=== PATIENT | male | born 1955 | race Hispanic/Latino ===

== ENCOUNTER → 2024-08-16 | Outpatient (REF) | payer MEDICARE ==
[~2024-08-16] MED LIST: IOPAMIDOL 370 MG/ML 100 ML INFUS..BTL INJ ONE; SODIUM CHLORIDE 0.9% 250ML 250 ML ONE
[2024-08-16 14:33] LABS: CREATININE, SERUM 0.94 mg/dL (0.72-1.25)
== END ==
LOC: CT 13:47
PROVIDERS: ATTEND Urology
DX: R31.21 Asymptomatic microscopic hematuria (principal)
CPT/HCPCS: 36415; 74178; 82565; 84520; J7050; Q9967

== ENCOUNTER 2024-12-07 07:49 | Inpatient (IN) | payer MEDICARE ==
[2024-11-29 10:50] LABS: BASOPHILS % 0.4 % (0.0-1.0); EOSINOPHILS % 1.2 % (0.0-6.0); LYMPHOCYTES % 20.3 % (18.0-39.1); MONOCYTES % 7.7 % (4.4-11.3); NEUTROPHILS % 70.0 % (38.7-80.0); RED CELL DISTRIBUTION WIDTH 14.3 % (11.7-14.4)
[2024-11-29 11:13] LABS: EST GLOMERULAR FILTRATION RATE 100.0 ML/MIN (>=60)
[~2024-12-07] VITALS: Ht 165.1 cm; Wt 68.9 kg
[2024-12-07] VITALS (8 sets, daily range): BP systolic 123–128; BP diastolic 77–81; PULSE 62–70; RESP 18; TEMP 97.5–97.8; O2SAT 94–100
[~2024-12-07 07:49] MED LIST changes: +FINASTERIDE5 MG PO; +FLOMAX0.4 MG PO; -IOPAMIDOL 370 MG/ML 100 ML INFUS..BTL INJ ONE; +LOSARTAN POTASS25 MG PO; -SODIUM CHLORIDE 0.9% 250ML 250 ML ONE
[2024-12-07] MEDS ORDERED: LIDOCAINE HCL 2% LOCAL INJ 5 ML SDV VIAL INJ ONE ×2 (08:42→09:39)
[2024-12-07] MEDS ORDERED: PROPOFOL IV EMULSION 10 MG/ML 20 ML VIAL ONE ×2 (08:42→09:39)
[2024-12-07] MEDS ORDERED: ROCURONIUM BROMIDE 0 ML IV ONE (08:42)
[2024-12-07] MEDS ORDERED: FENTANYL CITRATE/PF 100MCG/2 ML INJ ONE ×2 (09:14→09:39)
[2024-12-07] MEDS ORDERED: MIDAZOLAM HCL 2 MG/2 ML VIAL ONE (09:39)
[2024-12-07] MEDS ORDERED: ONDANSETRON HCL INJ 2MG/ML 2ML 2 MG/ML VIAL ONE (09:40)
[2024-12-07] MEDS ORDERED: ROCURONIUM BROMIDE 1 ML IV ONE (09:44)
[2024-12-07] MEDS: SODIUM CHLORIDE 0.9% 1000ML 1,000 ML ONE (10:24)
[2024-12-07] MEDS: CEFTRIAXONE 1 GM VIAL ONE (10:24)
[2024-12-07] MEDS: GENTAMICIN 80MG/NS 100 ML 200 ML IV ONE (10:25)
[2024-12-07] MEDS ORDERED: EPHEDRINE SULFATE INJ 50 MG/ML VIAL ONE (11:46)
[2024-12-07] MEDS ORDERED: ACETAMINOPHEN 1000 MG/100 ML 100 ML IV ONE (11:47)
[2024-12-07] MEDS ORDERED: SEVOFLURANE INHAL SOLN 250 ML PEN BTL ONE (11:47)
[2024-12-07] MEDS ORDERED: SUGAMMADEX SODIUM 200 MG/2 ML VIAL IV ONE (11:51)
[2024-12-07] MEDS ORDERED: ACETAMINOPHEN 1000 MG/100 ML IV PRN (12:00)
[2024-12-07] MEDS ORDERED: DIPHENHYDRAMINE HCL 25 MG CAP PO PRN (12:00)
[2024-12-07] MEDS ORDERED: ONDANSETRON HCL INJ 2MG/ML 2ML 2 MG/ML VIAL IV PRN (12:00)
[2024-12-07] MEDS: FENTANYL CITRATE/PF 100MCG/2 ML INJ ONE (12:14)
[2024-12-07] MEDS: PHENAZOPYRIDINE HCL 100 MG TAB PO PRN (12:31)
[2024-12-07] MEDS: ACETAMINOPHEN/CODEINE 300MG - 30MG TAB PO PRN (12:31)
[2024-12-07 12:50] LABS: BASOPHILS % 0.3 % (0.0-1.0); EOSINOPHILS % 0.4 % (0.0-6.0); LYMPHOCYTES % 22.5 % (18.0-39.1); MONOCYTES % 5.0 % (4.4-11.3); NEUTROPHILS % 71.5 % (38.7-80.0); RED CELL DISTRIBUTION WIDTH 14.1 % (11.7-14.4)
[2024-12-07 13:25] LABS: EST GLOMERULAR FILTRATION RATE 96.0 ML/MIN (>=60)
[2024-12-07] MEDS: SENNA-S TABLET PO SCH (16:55)
[2024-12-07] MEDS: SODIUM CHLORIDE 0.9% 1000ML 1,000 ML IV SCH (16:56)
[2024-12-08] VITALS (8 sets, daily range): BP systolic 114–126; BP diastolic 71–79; PULSE 64–76; RESP 17–18; TEMP 97.7–98.2; O2SAT 6–100
[2024-12-08 08:15] LABS: BASOPHILS % 0.1 % (0.0-1.0); EOSINOPHILS % 0.1 % (0.0-6.0); LYMPHOCYTES % 9.1 % (18.0-39.1); MONOCYTES % 4.9 % (4.4-11.3); NEUTROPHILS % 85.3 % (38.7-80.0); RED CELL DISTRIBUTION WIDTH 14.3 % (11.7-14.4)
[2024-12-08 08:24] LABS: EST GLOMERULAR FILTRATION RATE 103.0 ML/MIN (>=60)
[2024-12-09] VITALS (7 sets, daily range): BP systolic 115–130; BP diastolic 68–83; PULSE 58–75; RESP 18–20; TEMP 97.9–98.8; O2SAT 96–98
[2024-12-09 07:58] LABS: BASOPHILS % 0.3 % (0.0-1.0); EOSINOPHILS % 1.0 % (0.0-6.0); LYMPHOCYTES % 22.8 % (18.0-39.1); MONOCYTES % 7.5 % (4.4-11.3); NEUTROPHILS % 67.9 % (38.7-80.0); RED CELL DISTRIBUTION WIDTH 14.4 % (11.7-14.4)
[2024-12-09] MEDS ORDERED: TEMAZEPAM 15 MG CAP PO PRN (08:15)
[2024-12-09] MEDS ORDERED: ACETAMINOPHEN 325 MG TAB PO PRN (08:15)
[2024-12-09 08:24] LABS: EST GLOMERULAR FILTRATION RATE 102.0 ML/MIN (>=60)
[2024-12-09] MEDS: TAMSULOSIN HCL 0.4 MG CAP PO SCH (08:53)
== END 2024-12-09 19:00 | disposition home or self-care (01) | DRG 713 ==
LOC: OR 07:49 → PACU V 13:25 → MED/SURG3 13:29
PROVIDERS: ADMIT Internal Medicine; ATTEND Internal Medicine
PROC: 0T788ZZ Dilation of Bilateral Ureters, Via Natural or Artificial Opening Endoscopic (ICD-10-PCS; 2024-12-07)
PROC: BT141ZZ Fluoroscopy of Kidneys, Ureters and Bladder using Low Osmolar Contrast (ICD-10-PCS; 2024-12-07)
PROC: 0VT08ZZ Resection of Prostate, Via Natural or Artificial Opening Endoscopic (ICD-10-PCS; principal; 2024-12-07 10:44)
DX: N40.1 Benign prostatic hyperplasia with lower urinary tract symptoms (principal); N13.8 Other obstructive and reflux uropathy; R33.8 Other retention of urine; R31.0 Gross hematuria; R31.29 Other microscopic hematuria; N35.919 Unspecified urethral stricture, male, unspecified site; I10 Essential (primary) hypertension; D72.828 Other elevated white blood cell count; N32.89 Other specified disorders of bladder
CPT/HCPCS: 36415; 71046; 74420; 80048; 83735; 85025; 87086; 88305; 93005; 94799; J0696; J1580; J2003; J2250; J2405; J7030